=== PATIENT | female | born 1940 | race Caucasian/White ===

== ENCOUNTER 2018-06-09 14:16 | Day surgery (SDC) | payer MEDICARE ==
[~2018-06-09] VITALS: Ht 162.6 cm; Wt 92.0 kg
[~2018-06-09 14:16] MED LIST: ALBU90OI6 INH; ASCO500 PO; ASPI81EC PO; BI EST TOP; BIO-IDENTICAL HORMON TOP; BUDE200IP IH; CALGLU500 PO; COZAAR PO; Calcium PO; ERGO400 PO; FISH1000 PO; FOLI400 PO; GLUC500 PO; GLUCHON PO; HYDCHL12.5 PO; LOSA50 PO; LOVA20 PO; MELA3 PO; MULVITB PO; PSYL5.85P PO; TOCO400 PO
== END 2018-06-09 16:00 | disposition home or self-care (01) ==
LOC: ORSCSDS 14:16
PROVIDERS: Internal Medicine Gastroenterology
PROC: 0DBK8ZX Excision of Ascending Colon, Via Natural or Artificial Opening Endoscopic, Diagnostic (ICD-10-PCS; principal; 2018-06-09 15:30)
DX: Z12.11 Encounter for screening for malignant neoplasm of colon (principal); D12.2 Benign neoplasm of ascending colon; K64.8 Other hemorrhoids; K57.30 Diverticulosis of large intestine without perforation or abscess without bleeding; G47.33 Obstructive sleep apnea (adult) (pediatric); I10 Essential (primary) hypertension; J44.9 Chronic obstructive pulmonary disease, unspecified; E78.5 Hyperlipidemia, unspecified; Z79.82 Long term (current) use of aspirin; Z79.899 Other long term (current) drug therapy
CPT/HCPCS: 88305; J7120

== ENCOUNTER → 2022-09-07 | Outpatient (CLI) | payer OTHER ==
[2022-09-07 10:19] LABS: BASOPHILS ABSOLUTE AUTO 0.04 K/mm3 (0.00-0.23); BASOPHILS PERCENT AUTO 1 % (0-2); EOSINOPHILS ABSOLUTE AUTO 0.07 K/mm3 (0.00-0.68); EOSINOPHILS PERCENT AUTO 1 % (0-6); Hematocrit 43.2 % (33.0-51.0); Hemoglobin 14.3 g/dL (11.5-16.0); IMMATURE GRAN ABSOLUTE AUTO 0.01 K/mm3 (0.00-0.10); IMMATURE GRAN PERCENT AUTO 0 % (0-1); LYMPHOCYTES ABSOLUTE AUTO 2.24 K/mm3 (0.84-5.20); LYMPHOCYTES PERCENT AUTO 46 % (21-46); MONOCYTES ABSOLUTE AUTO 0.52 K/mm3 (0.16-1.47); MONOCYTES PERCENT AUTO 11 % (4-13); Mean Corpuscular HGB 32.5 pg (26.0-34.0); Mean Corpuscular HGB Conc 33.1 g/dL (31.5-36.5); Mean Corpuscular Volume 98 fL (80-100); Mean Platelet Volume 9.6 fL (9.1-12.4); NEUTROPHILS ABSOLUTE AUTO 2.04 K/mm3 (1.96-9.15); NEUTROPHILS PERCENT AUTO 42 % (41-73); Platelet Count 213 K/mm3 (150-400); RDW Coefficient Variation 13.2 % (11.7-14.2); RDW Standard Deviation 47.3 fL (35.1-46.3); White Blood Cell Count 4.92 K/mm3 (4.00-11.30)
[2022-09-07 10:23] LABS: Bun/Creatinine Ratio 13.2 (12.0-20.0); Calcium, Blood 9.2 mg/dL (8.5-10.1); Creatinine, Blood 0.68 mg/dL (0.40-1.00); Potassium, Blood 3.9 mmol/L (3.5-5.5)
== END | disposition home or self-care (01) ==
LOC: LAB 10:10 → LAB SHORT 10:10
PROVIDERS: Physician Assistant
DX: R10.32 Left lower quadrant pain (principal)
CPT/HCPCS: 80048; 85025

== ENCOUNTER 2022-11-05 09:11 | Day surgery (SDC) | payer OTHER ==
[~2022-11-05] VITALS: Ht 162.6 cm; Wt 88.7 kg
[~2022-11-05 09:11] MED LIST changes: +ASPI81CH PO; -ASPI81EC PO; +ELIQUIS5 M2 PO; +FOLI1; -FOLI400 PO; +Flonase 0.05% N16 GM; +METO25ER PO; +Metoprolol Succ25 MG; +VITAMIN D310 MC4 PO; +ZYRTEC10 M2 PO; +[UNRECOGNIZED DRUG - OTHER] PO
--- NOTE | 2022-11-05 10:06 | NUR ---
Ambulatory in Day Surgery. History, Chart, Medications and Allergies reviewed before start of procedure.Lungs clear T/O to Auscultation. Patient confirms NPO status and agrees with scheduled surgery. Pre-Op teaching done. Pt verbalizes understanding.
--- NOTE | 2022-11-05 19:34 | NUR ---
SHIFT SUMMARY PATIENT NEW ADMIT TO UNIT POD [address] BAUM. ARRIVED TO ROOM ON BED FROM PACU. ALERT AND ORIENTED. POST OP VSS. SPINAL IN EFFECT ON ARRIVAL. SENSATION TO BLE GRADUALLY RETURNED OVER A FEW HOURS. PATIENT WAS ABLE TO AMBULATE IN ROOM WITH SBA AND FWW AND GAIT BELT. VOIDED IN BATHROOM. UP TO RECLINER FOR DINNER. LEFT KNEE WITH AQUACEL C/D/I, COMPRESSION STOCKING, SCD, AND POLAR PACK. PAIN CONTROLLED WITH SCHEDULED PAIN MEDS. HOME CPAP AT BEDSIDE, ORDERS ON CHART. PATIENT REPORTED A BRIEF EPISODE OF VISUAL DISTURBANCE IN HER PERIPHERAL VISION OF [place]. NEURO CHECKS WNL. PATIENT DENIED ANY WEAKNESS, CONFUSION, HEADACHE. STATED VISUAL DISTURBANCE WAS RESOLVING. REPORT GIVEN TO GRID CASTING MACHINE OPERATOR HELPER RN.
--- NOTE | 2022-11-06 04:04 | NUR ---
SHIFT SUMMARY NO ACUTE CHANGES. AQUACEL DRESSING REMAINS CDI WITH POLAR PACK IN PLACE. TYLENOL/TORADOL FOR PAIN MANAGEMENT. UP WITH 1 ASSIST USING FWW + GB TO BATHROOM. HAS RESTED WELL T/O SHIFT WITH CPAP IN PLACE. USES CALL LIGHT APPROPRIATELY.
[2022-11-06 04:44] LABS: BASOPHILS ABSOLUTE AUTO 0.02 K/mm3 (0.00-0.23); BASOPHILS PERCENT AUTO 0 % (0-2); EOSINOPHILS ABSOLUTE AUTO 0.04 K/mm3 (0.00-0.68); EOSINOPHILS PERCENT AUTO 0 % (0-6); Hemoglobin 12.5 g/dL (11.5-16.0); IMMATURE GRAN ABSOLUTE AUTO 0.03 K/mm3 (0.00-0.10); IMMATURE GRAN PERCENT AUTO 0 % (0-1); LYMPHOCYTES ABSOLUTE AUTO 2.34 K/mm3 (0.84-5.20); LYMPHOCYTES PERCENT AUTO 23 % (21-46); MONOCYTES ABSOLUTE AUTO 1.03 K/mm3 (0.16-1.47); MONOCYTES PERCENT AUTO 10 % (4-13); Mean Corpuscular HGB 32.4 pg (26.0-34.0); Mean Corpuscular HGB Conc 33.8 g/dL (31.5-36.5); Mean Corpuscular Volume 96 fL (80-100); Mean Platelet Volume 9.3 fL (9.1-12.4); NEUTROPHILS ABSOLUTE AUTO 6.86 K/mm3 (1.96-9.15); NEUTROPHILS PERCENT AUTO 66 % (41-73); Platelet Count 198 K/mm3 (150-400); RDW Coefficient Variation 12.7 % (11.7-14.2); Red Blood Cell Count 3.86 M/mm3 (3.80-5.20); White Blood Cell Count 10.32 K/mm3 (4.00-11.30)
[2022-11-06 05:10] LABS: Bun/Creatinine Ratio 21.9 (12.0-20.0); Calcium, Blood 8.8 mg/dL (8.5-10.1); Creatinine, Blood 0.59 mg/dL (0.40-1.00); Magnesium, Blood 2.1 mg/dL (1.6-2.4); Potassium, Blood 3.8 mmol/L (3.5-5.5)
[2022-11-06] MEDS ORDERED: ACET500 PO (07:34)
[2022-11-06] MEDS ORDERED: OXYC5 PO (07:35)
--- NOTE | 2022-11-06 13:52 | NUR ---
DISCHARGE SUMMARY ALERT AND ORIENTED. SBA TO AMBULATE IN ROOM WITH FWW AND GAIT BELT. TOLERATING REGULAR DIET AND LIQUIDS. VOIDING WELL. PAIN CONTROLLED WITH SCHEDULED PAIN MEDS. AQUACEL TO LEFT KNEE C/D/I. CLEARED BY PHYSICAL THERAPY. DISCHARGE ORDER IN CHART. DISCHARGE EDUCATION GIVEN ON ACTIVITY, INCISION CARE, AND FOLLOW UP APPTS. IV DC'D WNL. PATIENT LEFT UNIT AT 1230 VIA WHEELCHAIR FOR HOME WITH SON.
== END 2022-11-06 12:40 | disposition home or self-care (01) ==
LOC: ORSCMMR 09:11 → ORD 10:45 → SURS 13:20 → ORSCMMR 11-06 12:40
PROVIDERS: Orthopaedic Surgery
PROC: 0SRD0JA Replacement of Left Knee Joint with Synthetic Substitute, Uncemented, Open Approach (ICD-10-PCS; principal; 2022-11-05 10:45)
PROC: 8E0Y0CZ Robotic Assisted Procedure of Lower Extremity, Open Approach (ICD-10-PCS; principal; 2022-11-05 10:45)
DX: M17.12 Unilateral primary osteoarthritis, left knee (principal); I10 Essential (primary) hypertension; E78.5 Hyperlipidemia, unspecified; J45.909 Unspecified asthma, uncomplicated; G47.33 Obstructive sleep apnea (adult) (pediatric); Z86.73 Personal history of transient ischemic attack (TIA), and cerebral infarction without residual deficits; Z79.899 Other long term (current) drug therapy; Z79.01 Long term (current) use of anticoagulants
CPT/HCPCS: 27447; 20985; S2900; 36415; 73560-LT; 80048; 83735; 85025; 94660; 94762; 97110; 97116; 97161; 97530; A9270; C1776; J0171; J0690; J0735; J1885; J2250; J2795; J7120

== ENCOUNTER 2024-09-29 07:38 | Emergency (ER) | payer OTHER ==
[~2024-09-29] VITALS: Ht 160 cm; Wt 72.6 kg
[~2024-09-29 07:38] MED LIST changes: +ACET500 PO; +ALBU90OI INH; +FLUTICASONE PRO12 GM; +FOLI1 PO; +OXYC5 PO
[2024-09-29 09:02] LABS: BASOPHILS ABSOLUTE AUTO 0.06 K/mm3 (0.00-0.23); BASOPHILS PERCENT AUTO 1 % (0-2); EOSINOPHILS ABSOLUTE AUTO 0.04 K/mm3 (0.00-0.68); EOSINOPHILS PERCENT AUTO 1 % (0-6); Hematocrit 38.6 % (33.0-51.0); IMMATURE GRAN ABSOLUTE AUTO 0.04 K/mm3 (0.00-0.10); IMMATURE GRAN PERCENT AUTO 1 % (0-1); LYMPHOCYTES ABSOLUTE AUTO 1.52 K/mm3 (0.84-5.20); LYMPHOCYTES PERCENT AUTO 18 % (21-46); MONOCYTES ABSOLUTE AUTO 0.94 K/mm3 (0.16-1.47); MONOCYTES PERCENT AUTO 11 % (4-13); Mean Corpuscular HGB 31.5 pg (26.0-34.0); Mean Corpuscular HGB Conc 33.7 g/dL (31.5-36.5); Mean Corpuscular Volume 94 fL (80-100); Mean Platelet Volume 9.3 fL (9.1-12.4); NEUTROPHILS ABSOLUTE AUTO 5.76 K/mm3 (1.96-9.15); NEUTROPHILS PERCENT AUTO 69 % (41-73); Platelet Count 189 K/mm3 (150-400); RDW Coefficient Variation 12.9 % (11.7-14.2); RDW Standard Deviation 44.4 fL (35.1-46.3); Red Blood Cell Count 4.13 M/mm3 (3.80-5.20); White Blood Cell Count 8.36 K/mm3 (4.00-11.30)
[2024-09-29] MEDS ORDERED: KETOROLAC TROMET3 ML (09:19)
[2024-09-29] MEDS ORDERED: POLYMYXIN B-TMP10 ML (09:19)
[2024-09-29] MEDS ORDERED: PRED FORTE5 M1 LEFTEYE (09:20)
[2024-09-29 09:28] LABS: Albumin, Blood 3.3 g/dL (3.4-5.0); Albumin/Globulin Ratio 0.9 (0.8-1.8); Bilirubin, Total 0.5 mg/dL (0.1-1.0); Bun/Creatinine Ratio 10.2 (12.0-20.0); Calcium, Blood 9.4 mg/dL (8.5-10.1); Creatinine, Blood 0.78 mg/dL (0.40-1.00); Globulin, Blood 3.8 g/dL (2.2-4.0); Magnesium, Blood 1.9 mg/dL (1.6-2.4); Potassium, Blood 3.4 mmol/L (3.5-5.5); Total Protein, Blood 7.1 g/dL (6.4-8.2)
[2024-09-29] MEDS ORDERED: NS 1,000 ML IV SCH (09:35)
[2024-09-29] MEDS ORDERED: Potassium Chloride 10 Meq Tablet SA PO ONE (10:40)
[2024-09-29 13:52] LABS: Campylobacter Sp Not Detected (NOT DETECT)
[2024-09-29 13:53] LABS: Adenovirus F 40/41 Not Detected (NOT DETECT); Astrovirus Not Detected (NOT DETECT); Cryptosporidium Not Detected (NOT DETECT); Cyclospora Cayetanensis Not Detected (NOT DETECT); E. Coli O157 Not Detected (NOT DETECT); Entamoeba Histolytica Not Detected (NOT DETECT); Enteroaggregative E. coli-EAEC Not Detected (NOT DETECT); Enteropathogenic E. coli-EPEC Not Detected (NOT DETECT); Enterotoxigenic E. coli-ETEC Not Detected (NOT DETECT); Giardia Lamblia Not Detected (NOT DETECT); Norovirus GI/GII Not Detected (NOT DETECT); Plesiomonas Shigelloides Not Detected (NOT DETECT); Rotavirus A Not Detected (NOT DETECT); Salmonella Sp Not Detected (NOT DETECT); Sapovirus Not Detected (NOT DETECT); Shiga Toxin-prod E. coli-STEC Not Detected (NOT DETECT); Shigella/Enteroin E. coli-EIEC Not Detected (NOT DETECT); Vibrio Cholerae Not Detected (NOT DETECT); Vibrio Sp Not Detected (NOT DETECT); Yersinia Enterocolitica Not Detected (NOT DETECT)
[2024-09-29 14:00] VITALS: BP 138/76
== END 2024-09-29 14:35 | disposition home or self-care (01) ==
LOC: ER 07:38
PROVIDERS: Physician Assistant; Student in an Organized Health Care Education/Training Program
DX: R55 Syncope and collapse (principal); E86.0 Dehydration; E87.6 Hypokalemia; Z79.51 Long term (current) use of inhaled steroids; Z79.899 Other long term (current) drug therapy; Z88.5 Allergy status to narcotic agent; Z88.8 Allergy status to other drugs, medicaments and biological substances
CPT/HCPCS: 80053; 83735; 85025; 87507; 93005; 93010; 96360; 99284-25; A9270; J7030